=== PATIENT | female | born 1965 | race Asian ===

== ENCOUNTER 2016-11-25 16:55 | Emergency (ER) | payer SELFPAY ==
[~2016-11-25] VITALS: Ht 154.9 cm; Wt 65.9 kg
[2016-11-25 18:28] VITALS: BP 131/68
== END 2016-11-25 18:31 | disposition home or self-care (01) ==
LOC: EMS 16:57
DX: S13.4XXA Sprain of ligaments of cervical spine, initial encounter (principal); E78.00 Pure hypercholesterolemia, unspecified; V49.50XA Passenger injured in collision with unspecified motor vehicles in traffic accident, initial encounter; Y93.89 Activity, other specified; Y92.89 Other specified places as the place of occurrence of the external cause; Y99.8 Other external cause status
CPT/HCPCS: 70450; 72125; 99284